=== PATIENT | female | born 1975 | race Caucasian/White ===

== ENCOUNTER 2023-11-24 23:10 | Emergency (ER) | payer OTHER ==
[~2023-11-24] VITALS: Ht 160 cm; Wt 81.0 kg
[~2023-11-24 23:10] MED LIST: CEFDINIR300 MG PO; RETIN-A20 GM TOP; STELARA45 MG/0.1 SUB-Q; ZITHROMAX250 MG PO
[2023-11-25 01:41] VITALS: BP 88/56
== END 2023-11-24 23:51 | disposition home or self-care (01) ==
LOC: ED 23:10
DX: S61.412A Laceration without foreign body of left hand, initial encounter (principal); W26.9XXA Contact with unspecified sharp object(s), initial encounter; Y93.G1 Activity, food preparation and clean up
CPT/HCPCS: 12001; 99282